=== PATIENT | female | born 2000 | race Caucasian/White ===

== ENCOUNTER 2025-08-23 08:50 | Emergency (ER) | payer OTHER ==
[~2025-08-23] VITALS: Ht 157.5 cm; Wt 65.8 kg
[2025-08-23] MEDS ORDERED: PRENATE DHA SO1 EAC1 (09:03)
[2025-08-23] MEDS ORDERED: ACETAMINOPHEN 500 MG GEL..CAP PO ONE (09:30)
[2025-08-23] MEDS ORDERED: CETIRIZINE HCL 10 MG TABLET PO ONE (09:30)
[2025-08-23] MEDS ORDERED: GUAIFENESIN 600 MG TABLET.SA PO ONE (09:30)
[2025-08-23] MEDS ORDERED: LEVALBUTEROL HCL 0.63 MG/3 ML SOLUTION IH ONE (09:45)
[2025-08-23] MEDS ORDERED: IPRATROPIUM BROMIDE 0.5 MG/2.5 ML AMPUL.NEB IH ONE (09:45)
[2025-08-23 10:07] LABS: BASO % 0.4 % (0.1-1.2); EOS # 0.17 (0.04-0.54); EOS % 1.5 % (0.7-7.0); LYMPH # 1.05 (1.18-3.74); LYMPH % 9.0 % (19.3-53.1); MEAN PLATELET VOLUME 10.40 fl (9.4-12.4); MONO # 0.57 (0.24-0.82); MONO % 4.9 % (4.7-12.5); NEUT # 9.73 (1.56-6.13); NEUT % 83.3 % (34.0-71.1); RED CELL DISTRIBUTION WIDTH 13.6 % (11.6-14.4)
[2025-08-23 11:08] LABS: ALT/SGPT 22.0 U/L (12-78); AST/SGOT 19.0 U/L (15-37); BILIRUBIN TOTAL 0.25 mg/dL (0.3-1.2); BUN CREA RATIO 12.0 (7.0-25.0); CREATININE SERUM 0.42 mg/dL (0.55-1.02); GFR 185.36; GLOBULINA 3.3 G/DL (2.4-3.5); GLUCOSE FASTING 109.0 mg/dL (65-100); OSMOLALITY SERUM 279.0 MOSM/KG (275-295)
[2025-08-23 11:12] LABS: HCG QUANTITATIVE 13671.0 mUI/mL (1-3)
[2025-08-23 11:17] LABS: COVID-19 AG NEGATIVE (NEGATIVE)
[2025-08-23] MEDS ORDERED: MUCINEX600 MG PO (13:19)
[2025-08-23] MEDS ORDERED: ZITHROMAX200 MG PO (13:19)
[2025-08-23] MEDS ORDERED: ZYRTEC10 MG PO (13:19)
== END 2025-08-23 14:34 | disposition home or self-care (01) ==
LOC: ER 08:51
PROVIDERS: General Practice
DX: B34.9 Viral infection, unspecified (principal); Z91.013 Allergy to seafood; Z20.822 Contact with and (suspected) exposure to COVID-19

== ENCOUNTER 2025-10-06 21:57 | Outpatient (CLI) | payer OTHER ==
[2025-10-06 21:17] VITALS: BP 113/70
[~2025-10-06 21:57] MED LIST: MUCINEX600 MG PO; PRENATE DHA SO1 EAC1; ZITHROMAX200 MG PO; ZYRTEC10 MG PO
[2025-10-06] MEDS ORDERED: RINGERS SOLUTION,LACTATED 1,000 ML IV SCH (22:15)
[2025-10-06] MEDS ORDERED: ONDANSETRON HCL 2 MG/ML VIAL IV SCH (22:30)
[2025-10-06] MEDS ORDERED: FAMOTIDINE/PF 20 MG/2 ML VIAL IV SCH (22:30)
[2025-10-06 23:24] LABS: URINE APPEARANCE Clear; URINE BILIRRUBIN Negative (NEGATIVE); URINE BLOOD Negative; URINE COLOR Dark Yellow; URINE GLUCOSE Negative (NEGATIVE); URINE LEUKOCYTE Moderate; URINE NITRATE Negative; URINE PROTEIN 30 (NEGATIVE); URINE UROBILINOGEN 0.2 E.U./dl
[2025-10-06 23:27] LABS: BASO % 0.1 % (0.1-1.2); EOS # 0.00 (0.04-0.54); EOS % 0.0 % (0.7-7.0); LYMPH # 0.28 (1.18-3.74); LYMPH % 1.9 % (19.3-53.1); MEAN PLATELET VOLUME 11.00 fl (9.4-12.4); MONO # 0.49 (0.24-0.82); MONO % 3.4 % (4.7-12.5); NEUT # 13.65 (1.56-6.13); NEUT % 93.8 % (34.0-71.1); RED CELL DISTRIBUTION WIDTH 14.0 % (11.6-14.4)
[2025-10-06 23:28] LABS: URINE BACTERIA 1482.5 uL (0.0-1933); URINE EPITHELIAL CELLS 54.4 uL (0.0-38.8); URINE WBC 138.2 uL (0.0-23.2)
[2025-10-06 23:39] VITALS: BP 116/71
[2025-10-06 23:48] LABS: ALT/SGPT 22.0 U/L (12-78); AST/SGOT 19.0 U/L (15-37); BILIRUBIN TOTAL 1.09 mg/dL (0.3-1.2); BUN CREA RATIO 20.0 (7.0-25.0); CREATININE SERUM 0.45 mg/dL (0.55-1.02); GFR 171.18; GLOBULINA 3.4 G/DL (2.4-3.5); GLUCOSE FASTING 80.0 mg/dL (65-100); OSMOLALITY SERUM 281.0 MOSM/KG (275-295)
[2025-10-06 23:56] LABS: URINE KETONE >=160 (NEGATIVE)
[2025-10-06 23:57] LABS: URINE CAST 0.56 uL (0.0-1.40); URINE RBC 1.2 uL (0.0-20.8)
[2025-10-07 04:20] VITALS: BP 106/61
[2025-10-07 07:25] VITALS: BP 114/64
[2025-10-07 08:40] VITALS: BP 114/64
== END 2025-10-07 09:38 | disposition home or self-care (01) ==
LOC: OBS/DEL 21:57
PROVIDERS: ATTEND Specialist
DX: O26.893 Other specified pregnancy related conditions, third trimester (principal); R11.10 Vomiting, unspecified; Z3A.34 34 weeks gestation of pregnancy